=== PATIENT | female | born 2000 | race Caucasian/White ===

== ENCOUNTER 2023-11-14 06:13 | Emergency (ER) | payer SELFPAY ==
[~2023-11-14] VITALS: Ht 182.9 cm; Wt 115.9 kg
[2023-11-14 06:29] VITALS: TEMP 98
[2023-11-14] MEDS ORDERED: CEPHALEXIN500 M1 PO (11:52)
[2023-11-14 11:56] VITALS: BP 176/97; PULSE 94
== END 2023-11-14 11:57 | disposition home or self-care (01) ==
LOC: COL.ER 06:13
DX: S71.111A Laceration without foreign body, right thigh, initial encounter (principal); S71.112A Laceration without foreign body, left thigh, initial encounter; F32.A Depression, unspecified; X58.XXXA Exposure to other specified factors, initial encounter